=== PATIENT | female | born 1970 | race Two or more races ===

== ENCOUNTER 2017-04-13 11:47 | Inpatient (IN) | payer OTHER ==
--- NOTE | 2017-04-13 12:02 | ED Physician Chart ---
ED Chief Complaint/HPI - Patient Information Date Seen:: 04/13/17 Time Seen:: 11:55 Chief Complaint:: Syncope History of Present Illness:: onset x one hour of a witnessed syncopal episode with N/V reported; no report of H/As, neck pain, C/P, SOB, cough, Abd./Flank Pain, A/D/C, fever, chills, or urinary s/s; no trauma reported Allergies:: Allergies Allergy/AdvReac Type Severity Reaction Status Date / Time No Known Allergies Allergy Verified 04/13/17 11:52 Vitals:: Vital Signs - 8 hr 04/13/17 11:52 Temp 99.8 F HR 100 RR 16 BP 167/109 O2 Sat % 95 Historian:: Patient, Friend Review:: Nurse's Note Reviewed ED Review of Systems - Review of Systems General/Constitutional: No fever, No chills, No weight loss, No weakness, No diaphoresis, No edema, No loss of appetite Skin: No skin lesions, No rash, No bruising Head: No headache, No light-headedness Eyes: No loss of vision, No pain, No diplopia ENT: No earache, No nasal drainage, No sore throat, No tinnitus Neck: No neck pain, No swelling, No thyromegaly, No stiffness, No mass noted Cardio Vascular: Chest pain, Palpitations, No PND, No orthopnea, No edema Pulmonary: No SOB, No cough, No sputum, No wheezing GI: No nausea, No vomiting, No diarrhea, No pain, No melena, No hematochezia, No constipation, No hematemesis G/U: No dysuria, No frequency, No hematuria Musculoskeletal: No bone or joint pain, No back pain, No muscle pain Endocrine: No polyuria, No polydipsia Psychiatric: No prior psych history, No depression, No anxiety, No suicidal ideation Hematopoietic: No bruising, No lymphadenopathy Allergic/Immuno: No urticaria, No angioedema Neurological: Syncope, No focal symptoms, Weakness, No paresthesia, Headache, No seizure, Dizziness, No confusion, Vertigo ED Past Medical History - Past Medical History Obtainable: Yes Past Medical History: No significant medical hx Family History: HTN Social History: Non Smoker, No Alcohol, No Drug Use, , Employed Surgical History: None Psychiatricy History: None Medication: Reviewed Family Medical History - Family Member Mother History Unknown: Yes ED Physical Exam - Physical Examination General/Constitutional: Awake, Well-developed, well-nourished, Alert, No distress, GCS 15, Non-toxic appearing, Ambulatory Head: Atraumatic Eyes: Lids, conjuctiva normal, PERRL, EOMI Skin: Nl inspection, No rash, No skin lesions, No ecchymosis, Well hydrated, No lymphadenopathy ENMT: External ears, nose nl, Nasal exam nl, Lips, teeth, gums nl Neck: Nontender, Full ROM w/o pain, No JVD, No nuchal rigidity, No bruit, No mass, No stridor Respiratory: Nl effort/Exclusion, Clear to Auscultation, No Wheeze/Rhonchi/Rales Cardio Vascular: RRR, No murmur, gallop, rubs, NL S1 S2 GI: No tenderness/rebounding/guarding, No organomegaly, No hernia, Normal BS's, Nondistended, No mass/bruits, No McBurney tenderness : No CVA tenderness Extremities: No tenderness or effusion, Full ROM, normal strength in all extremities, No edema, Normal digits & nails Neuro/Psych: Alert/oriented, DTR's symmetric, Normal sensory exam, Normal motor strength, Judgement/insight normal, Mood normal, Normal gait, No focal deficits Misc: Normal back, No paraspinal tenderness ED Labs/Radiology/EKG Results - Lab Results Comments:: unremarkable - Radiology Results Comments:: NAD - EKG Interpretations EKG Time:: 11:56 Rate & Rhythm: 77; NSR Comments:: RVH; T-Wave Inversions in V1 and V2; otherwise non-specific st-t changes ED Septic Shock - . Is Septic Shock (SBP<90, OR Lactate>4 mmol\L) present?: No - <6hrs of presentation: Vital Signs: Vital Signs - 8 hr 04/13/17 11:52 Temp 99.8 F HR 100 RR 16 BP 167/109 O2 Sat % 95 ED Reassessment (Disposition) - Reassessment Reassessment Condition:: Improved - Diagnosis Diagnosis:: Dx: Myocardial Ischemia; Syncope; Headaches; Nausea/Vomiting; Gastritis; Vascular Cephalgia - Aftercare/Follow up Instructions Aftercare/Follow-Up Instructions:: Counseled pt regarding lab results/diagnosis & need follow up, Counseled pt & family regarding lab results/diagnosis & need follow up - Patient Disposition Discharge/Transfer:: Acute Care w/in this hosp Accepting Physician:: Dr. Conte Time Called:: 141 Time Responded:: 14:15 Admitted to:: Telemetry Spoke to:: Dr. Conte Admitting Medical Physician:: Dr. Conte Condition at Disposition:: Stable, Improved
[2017-04-13 12:19] LABS: % BASOPHILS 0.6 % (0.0-2.0); % EOSINOPHILS 2.7 % (0.0-5.0); % LYMPHOCYTES 36.2 % (20.0-50.0); % MONOCYTES 8.2 % (2.0-10.0); % NEUTROPHILS 52.3 % (40.0-80.0); HEMATOCRIT 35.3 % (41.0-60); MEAN CELL VOLUME 90.2 fl (81-100); MEAN CORPUSCULAR HEMOGLOBIN 30.7 pg (27.0-31.0); MEAN PLATELET VOLUME 7.2 fl; NEUTROPHILE ABSOLUTE 2.8 Th/cmm (1.8-8.0); PLATELET COUNT 221 Th/cmm (150-400); RED BLOOD COUNT 3.92 Mil/cmm (3.80-5.10); RED CELL DISTRIBUTION WIDTH 12.5 % (11.5-20.0); WHITE BLOOD COUNT 5.1 Th/cmm (4.8-10.8)
[2017-04-13 12:27] LABS: INR 0.98 (0.5-1.4); PROTHROMBIN TIME (TEST) 10.2 SECONDS (9.5-11.5)
[2017-04-13 12:39] LABS: ALB/GLOB RATIO 1.4 (1.0-1.8); ALKALINE PHOSPHATASE 37 U/L (34-104); ANION GAP 10.1 (7.0-16.0); BILIRUBIN,TOTAL 0.8 mg/dL (0.3-1.0); BUN - UREA NITROGEN 10 mg/dL (7-25); BUN/CREATININE RATIO 14.3; CALCIUM SERUM 9.1 mg/dL (8.6-10.3); CARBON DIOXIDE 23.7 mEq/L (21.0-31.0); CHLORIDE 106 mEq/L (98-107); CHOLESTEROL 180 mg/dL (<200); CREATININE - SERUM 0.7 mg/dL (0.6-1.2); GLUCOSE 103 mg/dL (70-105); POTASSIUM SERUM 3.8 mEq/L (3.5-5.1); SGOT 17 U/L (13-39); SGPT/ALT 9 U/L (7-52); SODIUM SERUM 136 mEq/L (136-145); TRIGLYCERIDES 171 mg/dL (<150)
[2017-04-13] MEDS: Sodium Chloride 0.9% 1,000 ML IV ONE ×2 (13:26→17:58)
--- NOTE | 2017-04-13 13:43 | Diagnostic Imaging Report ---
Head CT without intravenous contrast Indication: Headaches, syncope, nausea and vomiting Comparison: None Technique: Axial images were obtained from the vertex to the skull base without IV contrast. Coronal reconstructions were made. Total DLP: 631, CTDI35.2 FINDINGS: Images of the brain obtained without contrast demonstrate no acute hemorrhage. No mass lesions identified. The ventricles and basal cisterns are patent. The crane-white matter differentiation is preserved. There is no mass effect or midline shift. No skull fractures identified. No soft tissue swelling. The paranasal sinuses are clear. IMPRESSION: No acute intracranial abnormality.
--- NOTE | 2017-04-13 13:44 | Diagnostic Imaging Report ---
CHEST X-RAY: AP view INDICATION: Nausea vomiting COMPARISON: None FINDINGS: There is no focal consolidation or pleural effusions The heart is normal in size. Mildly tortuous thoracic aorta is noted. The osseous structures demonstrate no acute abnormalities. IMPRESSION: No acute cardiopulmonary disease.
[2017-04-13] MEDS ORDERED: Acetaminophen 500 MG TAB ONE (13:47)
[2017-04-13 15:53] VITALS: BP 114/62
[2017-04-13] MEDS ORDERED: D5-0.9%NS 1,000 ML IV SCH (19:30)
[2017-04-14 03:49] LABS: % EOSINOPHILS 4.1 % (0.0-5.0); % LYMPHOCYTES 35.1 % (20.0-50.0); % MONOCYTES 9.2 % (2.0-10.0); % NEUTROPHILS 50.6 % (40.0-80.0); HEMATOCRIT 33.5 % (41.0-60); HEMOGLOBIN 11.4 gm/dL (12-16); MEAN CELL VOLUME 91.6 fl (81-100); MEAN CORPUSCULAR HEMOGLOBIN 31.1 pg (27.0-31.0); MEAN PLATELET VOLUME 7.5 fl; NEUTROPHILE ABSOLUTE 2.5 Th/cmm (1.8-8.0); PLATELET COUNT 206 Th/cmm (150-400); RED BLOOD COUNT 3.65 Mil/cmm (3.80-5.10); RED CELL DISTRIBUTION WIDTH 12.7 % (11.5-20.0); WHITE BLOOD COUNT 5.1 Th/cmm (4.8-10.8)
[2017-04-14 04:05] LABS: ALB/GLOB RATIO 1.3 (1.0-1.8); ALKALINE PHOSPHATASE 30 U/L (34-104); ANION GAP 7.7 (7.0-16.0); BILIRUBIN,TOTAL 0.8 mg/dL (0.3-1.0); BUN - UREA NITROGEN 15 mg/dL (7-25); BUN/CREATININE RATIO 21.4; CALCIUM SERUM 7.9 mg/dL (8.6-10.3); CARBON DIOXIDE 23.3 mEq/L (21.0-31.0); CHLORIDE 110 mEq/L (98-107); CHOLESTEROL 142 mg/dL (<200); CREATININE - SERUM 0.7 mg/dL (0.6-1.2); GLUCOSE 102 mg/dL (70-105); SGOT 14 U/L (13-39); SGPT/ALT 7 U/L (7-52); SODIUM SERUM 137 mEq/L (136-145); TRIGLYCERIDES 84 mg/dL (<150)
--- NOTE | 2017-04-14 10:53 | Diagnostic Imaging Report ---
Carotid ultrasound HISTORY: Syncope COMPARISON: None Technique: Longitudinal and transverse sonographic sector images of the carotid arteries were obtained with doppler analysis. FINDINGS: Exam of the right side demonstrates mild intimal thickening. No significant focal atherosclerotic vascular disease. Exam of the left side demonstrates mild intimal thickening. No significant focal atherosclerotic vascular disease. The velocity and velocity ratios are within normal limits. Antegrade vertebral artery flow is demonstrated bilaterally. IMPRESSION: No evidence of significant focal atherosclerotic vascular disease. No evidence of hemodynamically significant stenosis.
--- NOTE | 2017-04-14 13:06 | Internal Medicine Prog Note ---
Internal Medicine Subjective - Subjective Service Date: 04/14/17 ([facility] dictated [id number]) Internal Medicine Objective - Results Result Diagrams: 04/14/17 03:35 04/14/17 03:35 Recent Labs: Laboratory Last Values WBC 5.1 Th/cmm (4.8-10.8) 04/14/17 03:35 RBC 3.65 Mil/cmm (3.80-5.10) L 04/14/17 03:35 Hgb 11.4 gm/dL (12-16) L 04/14/17 03:35 Hct 33.5 % (41.0-60) L 04/14/17 03:35 MCV 91.6 fl (81-100) 04/14/17 03:35 MCH 31.1 pg (27.0-31.0) H 04/14/17 03:35 MCHC Differential 34.0 pg (28.0-36.0) 04/14/17 03:35 RDW 12.7 % (11.5-20.0) 04/14/17 03:35 Plt Count 206 Th/cmm (150-400) 04/14/17 03:35 MPV 7.5 fl 04/14/17 03:35 Neutrophils % 50.6 % (40.0-80.0) 04/14/17 03:35 Lymphocytes % 35.1 % (20.0-50.0) 04/14/17 03:35 Monocytes % 9.2 % (2.0-10.0) 04/14/17 03:35 Eosinophils % 4.1 % (0.0-5.0) 04/14/17 03:35 Basophils % 1.0 % (0.0-2.0) 04/14/17 03:35 PT 10.2 SECONDS (9.5-11.5) 04/13/17 12:09 INR 0.98 (0.5-1.4) 04/13/17 12:09 Sodium 137 mEq/L (136-145) 04/14/17 03:35 Potassium 4.0 mEq/L (3.5-5.1) 04/14/17 03:35 Chloride 110 mEq/L (98-107) H 04/14/17 03:35 Carbon Dioxide 23.3 mEq/L (21.0-31.0) 04/14/17 03:35 Anion Gap 7.7 (7.0-16.0) 04/14/17 03:35 BUN 15 mg/dL (7-25) 04/14/17 03:35 Creatinine 0.7 mg/dL (0.6-1.2) 04/14/17 03:35 Est GFR ( Amer) > 60.0 ml/min (>90) 04/14/17 03:35 Est GFR (Non-Af Amer) > 60.0 ml/min 04/14/17 03:35 BUN/Creatinine Ratio 21.4 04/14/17 03:35 Glucose 102 mg/dL (70-105) 04/14/17 03:35 Calcium 7.9 mg/dL (8.6-10.3) L 04/14/17 03:35 Total Bilirubin 0.8 mg/dL (0.3-1.0) 04/14/17 03:35 AST 14 U/L (13-39) 04/14/17 03:35 ALT 7 U/L (7-52) 04/14/17 03:35 Alkaline Phosphatase 30 U/L (34-104) L 04/14/17 03:35 Creatine Kinase 85 U/L (30-223) 04/13/17 12:09 Troponin I < 0.01 ng/mL (0.01-0.05) L 04/14/17 11:30 B-Natriuretic Peptide 58.0 pg/mL (5.0-100.0) 04/13/17 12:09 Total Protein 5.6 gm/dL (6.0-8.3) L 04/14/17 03:35 Albumin 3.2 gm/dL (3.7-5.3) L 04/14/17 03:35 Globulin 2.4 gm/dL 04/14/17 03:35 Albumin/Globulin Ratio 1.3 (1.0-1.8) 04/14/17 03:35 Triglycerides 84 mg/dL (<150) 04/14/17 03:35 Cholesterol 142 mg/dL (<200) 04/14/17 03:35 LDL Cholesterol Direct 84 mg/dL (75-193) 04/14/17 03:35 HDL Cholesterol 52 mg/dL (23-92) 04/14/17 03:35 Serum , Qual NEGATIVE (NEGATIVE) 04/13/17 12:09 - Physical Exam Vitals and I&O: Vital Signs Temp 97.6 F 04/14/17 11:49 Pulse 62 04/14/17 11:49 Resp 17 04/14/17 11:49 BP 109/60 04/14/17 11:49 Pulse Ox 99 04/14/17 11:49 Intake & Output 04/13/17 04/14/17 04/14/17 18:59 06:59 18:59 Intake Total 453.008 790 5953 Output Total 500 Balance 453.333 -120 1000 Weight (lbs) 128 lb 128 lb Intake: Intake, IV Amount 259.399 3279 D5-0.9%Ns 1,000 ml @ 75 1000 mls/hr IV .[id number] [facility] Rx #:[id number] Sodium Chloride 0.9% 1, 453.333 000 ml @ 100 mls/hr IV . Q10H ONE Rx#:[id number] Oral 380 Output: Urine 500 Other: # Voids 0 # Bowel Movements 0 Active Medications: Current Medications Acetaminophen (Tylenol) 650 mg PO Q6H PRN PRN Reason: Mild Pain/Headache/T above 101 Stop: 06/12/17 19:23 Last Admin: 04/14/17 08:41 Dose: 650 mg Aspirin (Ecotrin) 81 mg PO DAILY [facility] Stop: 06/13/17 08:59 Last Admin: 04/14/17 09:39 Dose: 81 mg Dextrose/Sodium Chloride (D5-0.9%Ns) 1,000 mls @ 75 mls/hr IV .[id number] [facility] Stop: 06/12/17 19:29 Last Infusion: 04/14/17 10:13 Dose: Infused Sodium Chloride (Saline Flush) 10 ml IV QSHIFT [facility] Stop: 06/12/17 19:59 Last Admin: 04/13/17 20:53 Dose: 10 ml Temazepam (Restoril) 15 mg PO HS PRN; Protocol PRN Reason: Insomnia Stop: 06/12/17 19:23 Internal Medicine Assmt/Plan - Assessment Assessment: SYNCOPE PROTEIN CALORIE MALNUTRITION GENERALIZED WEAKNESS
--- NOTE | 2017-04-14 14:27 | History & Physical ---
ADMIT DATE: 04/14/2017 CHIEF COMPLAINT: Syncope. HISTORY OF PRESENT ILLNESS: This is a 46-year-old female who is at work and stated that she started to feel dizzy in her office. She hit her head against the wall and started to black out. She asked one of the pillowcase cutter to help her get up. She states that she felt very weak associated with dizziness. The patient denies any fevers, chills or any chest pain. However, upon examination, the patient still complains of headache and dizziness. She also states that she has been stressed from work and feels hopeless. PAST MEDICAL HISTORY: None per patient. FAMILY HISTORY: Hypertension. SOCIAL HISTORY: The patient denies any alcohol or illicit drug usage. SURGICAL HISTORY: None per patient. REVIEW OF SYSTEMS: GENERAL: Denies any fevers, any chills, but complains of weakness. CARDIOVASCULAR: Denies chest pain. RESPIRATORY: Denies shortness of breath. GASTROINTESTINAL: Denies nausea, vomiting, or abdominal pain. GENITOURINARY: Denies dysuria. NEUROLOGIC: The patient complains of weakness and dizziness. All other systems are reviewed by me and are negative. PHYSICAL EXAMINATION: GENERAL: The patient is well developed, well nourished, no acute distress. VITAL SIGNS: Temperature 97.6, heart rate 62, blood pressure 109/60, respirations 17, O2 99%. HEENT: Head; normocephalic, atraumatic. NECK: Supple. No mass. LUNGS: Clear bilaterally. HEART: Regular rate and rhythm. ABDOMEN: Soft and nontender. LABORATORY DATA: WBC 5.1, H and H 11.4 and 33.5, and platelet of 206. Sodium 137, potassium 4.0, chloride 110, BUN 15 and creatinine 0.7. Albumin of 3.2. DIAGNOSTICS: The patient had a carotid ultrasound done and the impression is no evidence of significant focal atherosclerotic vascular disease, no evidence of hemodynamically significant stenosis. The patient also had a CT of the head done and the impression is no acute intracranial abnormality. A chest x-ray was also obtained and the impression is no acute cardiopulmonary disease. ASSESSMENT: 1. Syncope. 2. Protein-calorie malnutrition. 3. Generalized weakness. PLAN: The patient was admitted to the telemetry unit. We will get leg a Cardiology consult and also Psych consult as well. We will get PT eval. Keep the patient on IV fluids for hydration. Fall precautions will be initiated. We will continue to follow this patient. [facility]# [id number]
--- NOTE | 2017-04-14 14:31 | Cardiology ---
04/13/[address] Conte M-MODE ECHOCARDIOGRAM: Mitral valve, anterior leaflet of mitral valve shows normal excursion, EF velocity. Posterior leaflet of the mitral valve shows normal excursion. Left ventricular posterior wall showed normal thickness excursion. Interventricular septum showed normal thickness excursion. Ejection fraction 68%. Left atrium normal. Aortic root shows normal dimension, normal excursion of aortic leaflets. CONCLUSION: Normal M-mode echo, ejection fraction 68%. 2D ECHO: Long axis view showed normal size left ventricle with normal wall motion. Mitral valve shows normal excursion. Left atrium normal. Aortic root shows normal dimension, normal excursion of aortic leaflets. Short axis view of mitral valve normal. Short axis view of aortic valve normal. Apical 4-chamber view showed normal sized left ventricle, left atrium, right ventricle, right atrium, tricuspid and mitral valve, ejection fraction 68%. CONCLUSION: Normal 2D echo, ejection fraction 68%. Doppler study shows mild mitral regurgitation and tricuspid regurgitation. Right ventricular systolic pressure 34 mmHg. [facility]# [id number]
[2017-04-14] MEDS ORDERED: APAP 325mg/Butalbital 50mg/Caff 40mg Tab PO PRN (15:19)
[2017-04-14] MEDS ORDERED: Albuterol Nebulizer 2.5mg/3mL HHN PRN (15:20)
--- NOTE | 2017-04-14 18:18 | Consultation ---
DATE OF CONSULTATION: 04/13/2017 PATIENT OF: Dr. Conte. 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 The patient is under extreme stress at work, following this the patient had syncopal episode and the patient was admitted. No history of PND or orthopnea. PAST MEDICAL HISTORY: Unremarkable. FAMILY HISTORY: Hypertension. SOCIAL HISTORY: No history of smoking, alcohol abuse. ALLERGIES: None. PHYSICAL EXAMINATION: VITAL SIGNS: Blood pressure on admission 167/109, pulse 70, respirations 20. HEAD: Normocephalic. No lumps or bumps. EYES: Pupils equal, reactive to light. Fundi show AV nicking. Sclerae white. Conjunctivae pink. NECK: Carotid 2+. Normal upstroke. JVD flat. Thyroid not palpable. Lymph nodes not palpable. CHEST: Shows increased AP diameter. No kyphosis, scoliosis. LUNGS: Bilateral bronchovesicular breath sounds. HEART: PMI fifth intercostal space with lateral to midclavicular line. S1, S2. No S3, S4. Systolic murmur, grade 2/6, lower left sternal border without radiation. ABDOMEN: Soft. Liver, spleen not palpable. No organomegaly. Bowel sounds are active. NEUROLOGIC: Unremarkable. EXTREMITIES: Peripheral pulses 2+. No pedal edema. CLINICAL IMPRESSION: 1. Syncope, probably severe anxiety. 2. Hypertension. PLAN: Admit the patient. We will get CT scan of the brain, carotid duplex study, and echocardiogram. JOB# [id number]
--- NOTE | 2017-04-14 22:53 | Consultation ---
DATE OF CONSULTATION: 04/14/2017 HISTORY OF PRESENT ILLNESS: This is a 46-year-old female who apparently was at work, started to feel dizzy, hit her head against the wall, apparently blacked out, feeling very weak. On [id number], the patient is noting that over the past 2 months, she has had increasing amounts of work-related anxiety. "I feel somewhat stress and pressure," and noting her appetite has been lower. She has been sleeping fairly well. She states that she sometimes feels very overwhelmed and does not know what to do and feels that these episodes have to do with work-related stress. She denies any hopelessness at this time. She wants to get better. PAST PSYCHIATRIC HISTORY: Nil. PAST MEDICAL HISTORY: Nil. FAMILY HISTORY: Noncontributory. SOCIAL HISTORY: [place] She is . She has 3 kids, one in high school, 2 in college. Denies any alcohol or illicit drug use. The patient works in the hospital setting. MENTAL STATUS EXAMINATION: Stated age. Fair eye contact. Speech within normal limits. Mood is "okay." Affect tearful. Thought processes were linear. No SI, no intent, no plan. No HI, no intent, no plan. No overt psychotic symptoms. Insight and judgment reasonable. Impulse control good. PROVISIONAL DIAGNOSIS: Mood, unspecified, rule out also adjustment disorder with depressed mood and anxiety, rule out major depressive disorder; and anxiety, unspecified. RECOMMENDATIONS AND PLAN: The patient seems to be suffering from work-related stress, which has been affecting her mood. She denies any overt psychotic symptoms. There is no evidence of psychosis and she is not suicidal. The patient will be following up with this clinician in the outpatient office as early as tomorrow for further psychiatric followup. I do not recommend the initiation of any antidepressants at this time as I feel given her history, which is significant for no history of depression that her symptoms are likely related to her environment. No inpatient psych criteria. No 5150 criteria and no SI at this time, no HI. She is not gravely disabled. JOB# [id number]
== END 2017-04-14 20:15 | disposition home or self-care (01) | DRG 312 ==
LOC: ER 11:47 → EDBD 11:47 → EEVIPCON 11:47 → TELE 14:40 → MSI 04-14 17:26
PROVIDERS: ADMIT Internal Medicine; ATTEND Internal Medicine
DX: R55 Syncope and collapse (principal); E46 Unspecified protein-calorie malnutrition; Z82.49 Family history of ischemic heart disease and other diseases of the circulatory system; I25.9 Chronic ischemic heart disease, unspecified; R11.2 Nausea with vomiting, unspecified; K29.70 Gastritis, unspecified, without bleeding; G44.1 Vascular headache, not elsewhere classified; I10 Essential (primary) hypertension; R53.1 Weakness; F41.9 Anxiety disorder, unspecified; Z68.20 Body mass index [BMI] 20.0-20.9, adult
CPT/HCPCS: 36415-UA; 70450-TC; 71010-TC; 80053-TC; 80061-TC; 82550-TC; 83880-TC; 84484-TC; 84703-TC; 85025-TC; 85610-TC; 93005; 93307-TC; 93880-TC; 94760; 96374; 96375; 97530; J1885; J2060; J2405; J7030; J7042; Z7610

== ENCOUNTER 2017-07-06 13:15 | Emergency (ER) | payer OTHER ==
--- NOTE | 2017-07-06 13:25 | ED Physician Chart ---
ED Chief Complaint/HPI - Patient Information Date Seen:: 07/06/17 Time Seen:: 13:15 Chief Complaint:: Left Shoulder Pain History of Present Illness:: onset x one day of intermittent left shoulder pain, anxiousness, and generalized paresthesias to all extremities; pt denies trauma, H/As, S/T, neck pain, C/P, SOB, Abd. Pain, A/N/v/D/C, fever, chills, or urinary s/s Allergies:: Allergies Allergy/AdvReac Type Severity Reaction Status Date / Time No Known Allergies Allergy Verified 04/13/17 11:52 Historian:: Patient Review:: Nurse's Note Reviewed ED Review of Systems - Review of Systems General/Constitutional: No fever, No chills, No weight loss, No weakness, No diaphoresis, No edema, No loss of appetite Skin: No skin lesions, No rash, No bruising Head: No headache, No light-headedness Eyes: No loss of vision, No pain, No diplopia ENT: No earache, No nasal drainage, No sore throat, No tinnitus Neck: No neck pain, No swelling, No thyromegaly, No stiffness, No mass noted Cardio Vascular: No chest pain, No palpitations, No PND, No orthopnea, No edema Pulmonary: No SOB, No cough, No sputum, No wheezing GI: No nausea, No vomiting, No diarrhea, No pain, No melena, No hematochezia, No constipation, No hematemesis G/U: No dysuria, No frequency, No hematuria, No nacturia Band Scroll Saw Operator: No vaginal discharge, No abnormal vaginal bleed, No contraction Musculoskeletal: No bone or joint pain, No back pain, No muscle pain Endocrine: No polyuria, No polydipsia Psychiatric: No prior psych history, No depression, Anxiety, No suicidal ideation, No homicidal ideation, No auditory hallucination, No visual hallucination Hematopoietic: No bruising, No lymphadenopathy Allergic/Immuno: No urticaria, No angioedema Neurological: No syncope, No focal symptoms, No weakness, No paresthesia, No headache, No seizure, No dizziness, No confusion, No vertigo ED Past Medical History - Past Medical History Obtainable: Yes Past Medical History: No significant medical hx Family History: None Social History: Non Smoker, No Alcohol, No Drug Use, , Employed Surgical History: None Psychiatricy History: None Medication: Reviewed Family Medical History - Family Member Mother History Unknown: Yes Ethnicity: Non- Living Status: Hx Family Cancer: No Hx Family Coronary Artery Disease: No Hx Family Congestive Heart Failure: No Hx Family Hypertension: No Hx Family Stroke: No Hx Family Diabetes: No Hx Family Seizures: No Hx Family Dementia: No Hx Family AIDS: No Hx Family HIV: No Hx Family COPD: No Hx Family Hepatitis: No Hx Family Psychiatric Problems: No Hx Family Tuberculosis: No father History Unknown: Yes Ethnicity: Non- Living Status: Hx Family Cancer: Yes (Skin CA) Hx Family Coronary Artery Disease: No Hx Family Congestive Heart Failure: No Hx Family Hypertension: No Hx Family Stroke: No Hx Family Diabetes: No Hx Family Seizures: No Hx Family Dementia: No Hx Family AIDS: No Hx Family HIV: No Hx Family COPD: No Hx Family Hepatitis: No Hx Family Psychiatric Problems: No Hx Family Tuberculosis: No ED Physical Exam - Physical Examination General/Constitutional: Awake, Well-developed, well-nourished, Alert, No distress, GCS 15, Non-toxic appearing, Ambulatory Head: Atraumatic Eyes: Lids, conjuctiva normal, PERRL, EOMI Skin: Nl inspection, No rash, No skin lesions, No ecchymosis, Well hydrated, No lymphadenopathy ENMT: External ears, nose nl, TM canals nl, Nasal exam nl, Lips, teeth, gums nl , Oropharynx nl, Tonsils nl Neck: Nontender, Full ROM w/o pain, No JVD, No nuchal rigidity, No bruit, No mass, No stridor Respiratory: Nl effort/Exclusion, Clear to Auscultation, No Wheeze/Rhonchi/Rales Cardio Vascular: RRR, No murmur, gallop, rubs, NL S1 S2, Carotid/Femoral/Distal pulses equal bilaterally GI: No tenderness/rebounding/guarding, No organomegaly, No hernia, Normal BS's, Nondistended, No mass/bruits, No McBurney tenderness : No CVA tenderness Extremities: No tenderness or effusion, Full ROM, normal strength in all extremities, No edema, Normal digits & nails Neuro/Psych: Alert/oriented, DTR's symmetric, Normal sensory exam, Normal motor strength, Judgement/insight normal, Mood normal, Normal gait, No focal deficits Misc: Normal back, No paraspinal tenderness ED Labs/Radiology/EKG Results - EKG Interpretations EKG Time:: 13:15 Rate & Rhythm: 69; NSR Comments:: WNL ED Septic Shock - . Is Septic Shock (SBP<90, OR Lactate>4 mmol\L) present?: No ED Reassessment (Disposition) - Reassessment Reassessment:: pt is asymptomatic upon discharge Reassessment Condition:: Improved - Diagnosis Diagnosis:: Arm Pain; Anxiety Reaction - Aftercare/Follow up Instructions Aftercare/Follow-Up Instructions:: Counseled pt regarding lab results/diagnosis & need follow up, Refer to Discharge Instructions, Counseled pt & family regarding lab results/diagnosis & need follow up - Patient Disposition Discharge/Transfer:: Against Medical Advice Condition at Disposition:: Stable, Improved (RTER prn if existing s/s reoccur and/or get worse and/or any other new s/s occur; ACIs given for all above Dx; Refer to Banana Expert/Roll Table Operator REY; F/U with PMD today or prn; RTER prn if concerned) ED Discharge Plan - Patient Disposition Admit/Discharge/Transfer: AGAINST MEDICAL ADVICE Condition at Disposition: Stable
== END 2017-07-06 13:58 | disposition left against medical advice (07) ==
LOC: ER 13:15
DX: M25.512 Pain in left shoulder (principal); F41.9 Anxiety disorder, unspecified
CPT/HCPCS: 99283; 93005; Z7610; 84703-TC; Z7502